=== PATIENT | male | born 1990 | race Asian ===

== ENCOUNTER 2018-02-14 06:37 | Day surgery (SDC) | payer OTHER ==
[~2018-02-14] VITALS: Ht 172.7 cm; Wt 66.7 kg
[2018-02-14 07:01] VITALS: BP 157/87
[2018-02-14 10:11] VITALS: BP 148/85
== END 2018-02-14 10:00 | disposition home or self-care (01) ==
LOC: GI 06:37 → OR 07:30 → GI 07:30
PROVIDERS: Internal Medicine Gastroenterology
PROC: 0DB68ZZ Excision of Stomach, Via Natural or Artificial Opening Endoscopic (ICD-10-PCS; principal; 2018-02-14 07:30)
DX: K29.50 Unspecified chronic gastritis without bleeding (principal); B96.81 Helicobacter pylori [H. pylori] as the cause of diseases classified elsewhere; K31.7 Polyp of stomach and duodenum
CPT/HCPCS: 43235; J1200; J1610; J2250; J2310; J3010; J3490